=== PATIENT | male | born 1965 | race Caucasian/White ===

== ENCOUNTER 2022-07-07 06:01 | Inpatient (IN) | payer MEDICARE, MEDICAID ==
[~2022-07-07] VITALS: Ht 175.3 cm; Wt 76.7 kg
[2022-07-07] MEDS ORDERED: HALOPERIDOL LACTATE 5 MG/ML VIAL IM ONE (07:30)
[2022-07-07] MEDS ORDERED: DiphenhydrAMINE HCL 50 MG/ML VIAL IM ONE (07:30)
[2022-07-07] MEDS ORDERED: LORazepam 2 MG/ML VIAL IM ONE (07:30)
[2022-07-07 08:46] LABS: BASOPHILS % (AUTO) 0.6 % (0.0-2.0); EOSINOPHILS % (AUTO) 1.4 % (1.0-6.0); HEMATOCRIT 38.1 % (41-53); HEMOGLOBIN 12.8 g/dL (13.5-17.5); LYMPHOCYTES # (AUTO) 2.5 K/uL (1.0-4.8); LYMPHOCYTES % (AUTO) 33.2 % (22.0-44.0); MEAN CORPUSCULAR HEMOGLOBIN 28.9 pg (26.0-34.0); MEAN CORPUSCULAR HGB CONC 33.6 G/dL (31.0-37.0); MEAN CORPUSCULAR VOLUME 86 fL (80-100); MONOCYTES # (AUTO) 0.7 K/uL (0.1-1.0); MONOCYTES % (AUTO) 9.6 % (2.0-9.0); NEUTROPHILS # (AUTO) 4.2 K/uL (1.8-7.7); NEUTROPHILS % (AUTO) 55.2 % (40.0-70.0); PLATELET COUNT (AUTO) 174 K/uL (150-450); RED BLOOD CELL COUNT(AUTO) 4.43 MIL/uL (4.50-5.90); RED CELL DISTRIBUTION WIDTH 15.9 % (11.5-14.5)
[2022-07-07 08:54] LABS: ANION GAP 8 mmol/L (8-16); CALCIUM, TOTAL 8.8 mg/dL (8.8-10.5); CARBON DIOXIDE 26 mmol/L (22-29); CHLORIDE 108 mmol/L (98-107); CREATININE 0.99 mg/dL (0.60-1.30); GLOMERULAR FILTR. RATE CALC > 60 mL/min (>60); GLUCOSE,RANDOM 142 mg/dL (70-110); POTASSIUM 3.5 mmol/L (3.5-5.1); SODIUM SERUM 142 mmol/L (136-145); UREA NITROGEN, BLOOD 16 mg/dL (7-18)
[2022-07-07 09:00] LABS: ALANINE AMINOTRANSFERASE 47 U/L (12-78); ALBUMIN 3.6 g/dL (3.4-5.0); ALKALINE PHOSPHATASE 102 U/L (46-116); ASPARTATE AMINOTRANSFERASE 28 U/L (15-37); BILIRUBIN,TOTAL 0.2 mg/dL (0.1-1.0); TOTAL PROTEIN, SERUM 7.4 g/dL (6.4-8.2)
[2022-07-07] MEDS ORDERED: OLANZapine 5 MG RAPDIS TABLET PO PRN (09:30)
[2022-07-07] MEDS ORDERED: LORazepam 2 MG TABLET PO PRN (09:30)
[2022-07-07] MEDS ORDERED: ZOLPIDEM TARTRATE 10 MG TABLET PO PRN (09:30)
[2022-07-07] MEDS ORDERED: GuaiFENesin/D-METHORPHAN [SUGAR-FREE] 200-20MG/10 ML SYRUP UDCUP PO PRN (11:00)
[2022-07-07] MEDS ORDERED: MAG HYDROX/AL HYDROX/SIMETH ES 30 ML SUSPENSION UDCUP PO PRN (11:00)
[2022-07-07] MEDS ORDERED: TUBERCULIN, PURIFIED PROTEIN DERIVATIVE 5 TU/0.1 ML SYRINGE ID ONE (11:00)
[2022-07-07] MEDS ORDERED: MAGNESIUM HYDROXIDE SUSPENSION 30 ML UDCUP PO PRN (11:00)
[2022-07-07] MEDS ORDERED: ACETAMINOPHEN 325 MG TABLET PO PRN (11:00)
[2022-07-07] MEDS ORDERED: HydrOXYzine PAMOATE 50 MG CAPSULE PO PRN (11:00)
[2022-07-07] MEDS ORDERED: PROMETHAZINE HCL 25 MG TABLET PO PRN (11:00)
[2022-07-07] MEDS ORDERED: LOPERAMIDE HCL 2 MG CAPSULE PO PRN (11:00)
[2022-07-07 11:12] LABS: COVID AG,FIA SOURCE NASAL SWAB
[2022-07-07 11:26] LABS: APPEARANCE,URINE CLEAR (CLEAR); BILIRUBIN,URINE NEGATIVE (NEGATIVE); GLUCOSE, URINE (UA) NEGATIVE (NEGATIVE); KETONES,URINE NEGATIVE (NEGATIVE); LEUKOCYTE ESTERASE ,URINE NEGATIVE (NEGATIVE); NITRATE,URINE NEGATIVE (NEGATIVE); OCCULT BLOOD,URINE NEGATIVE (NEGATIVE); PH,URINE 5.5 (5.0-8.0); PROTEIN,URINE NEGATIVE (NEGATIVE); SPECIFIC GRAVITIY, URINE 1.006 (1.003-1.030); UROBILINOGEN,URINE <=1.0 mg/dL (<=1.0)
[2022-07-07 11:35] LABS: AMPHET/METH SCREEN,URINE NEGATIVE (NEGATIVE); BARBITURATE SCREEN, URINE NEGATIVE (NEGATIVE); BENZODIAZEPINES SCREEN,URINE NEGATIVE (NEGATIVE); CANNABINOID SCREEN,URINE NEGATIVE (NEGATIVE); COCAINE SCREEN,URINE NEGATIVE (NEGATIVE); METHADONE SCREEN, URINE NEGATIVE (NEGATIVE); OPIATE SCREEN,URINE NEGATIVE (NEGATIVE)
[2022-07-07 11:36] LABS: PHENCYCLIDINE SCREEN,URINE NEGATIVE (NEGATIVE)
[2022-07-07] MEDS ORDERED: CARVEDILOL 3.125 MG TABLET PO ONE (17:15)
[2022-07-07] MEDS ORDERED: CloNIDine HCL 0.1 MG TABLET PO PRN (17:15)
[2022-07-07] MEDS ORDERED: CYANOCOBALAMIN 1,000 MCG/ML VIAL IM ONE (19:15)
[2022-07-07] MEDS ORDERED: DIAZEPAM 10 MG TABLET PO PRN (19:15)
[2022-07-07] MEDS: GABAPENTIN 300 MG CAPSULE PO SCH (21:00)
[2022-07-07] MEDS: MELATONIN 5 MG TABLET PO SCH (21:00)
[2022-07-07] MEDS: DIVALPROEX SODIUM 500 MG ER TABLET PO SCH (21:00)
[2022-07-07] MEDS: OLANZapine 5 MG RAPDIS TABLET PO SCH (21:00)
[2022-07-07 23:20] VITALS: BP 131/90
[2022-07-07] MEDS: THIAMINE 100 MG TABLET PO SCH (23:58)
[2022-07-07 23:59] VITALS: BP 131/90
[2022-07-08] VITALS (10 sets, daily range): BP systolic 103–128; BP diastolic 60–85
[2022-07-08 00:16] LABS: GLUCOMETER DEV NAME(LOC) BV3N.; GLUCOSE,POINT OF CARE 126 MG/DL (70-110)
[2022-07-08] MEDS ORDERED: DIAZEPAM 10 MG TABLET PO PRN (07:00)
[2022-07-08] MEDS: MULTIVITAMINS WITH MINERALS, THERAPEUTIC TABLET PO SCH (08:16)
[2022-07-08] MEDS: FOLIC ACID 1 MG TABLET PO SCH (08:16)
[2022-07-08] MEDS: DIAZEPAM 10 MG TABLET PO SCH ×4 (08:17→20:11)
[2022-07-08] MEDS: OMEGA-3/DHA/EPA/FISH OIL 1,000 MG CAPSULE PO SCH (08:17)
[2022-07-08] MEDS: GABAPENTIN 300 MG CAPSULE PO SCH ×4 (08:17→20:11)
[2022-07-08] MEDS: THIAMINE 100 MG TABLET PO SCH ×2 (08:17→18:10)
[2022-07-08] MEDS: NALTREXONE HCL 50 MG TABLET PO SCH (08:17)
[2022-07-08] MEDS: MELATONIN 5 MG TABLET PO SCH (20:11)
[2022-07-08] MEDS: OLANZapine 5 MG RAPDIS TABLET PO SCH (20:11)
[2022-07-08] MEDS: DIVALPROEX SODIUM 500 MG ER TABLET PO SCH (20:11)
[2022-07-09 07:25] LABS: HEMOGLOBIN A1C 6.3 % (3.8-5.6)
[2022-07-09 07:31] LABS: CHOL/HDL RATIO 4.9 (4.2-7.3); FREE T4 (FREE THYROXINE) 0.83 ng/dL (0.76-1.46)
[2022-07-09 07:54] LABS: THYROID STIMULATING HORMONE 1.12 uIU/mL (0.36-3.74)
[2022-07-09 08:07] VITALS: BP 118/68
[2022-07-09] MEDS: FOLIC ACID 1 MG TABLET PO SCH (08:51)
[2022-07-09] MEDS: OMEGA-3/DHA/EPA/FISH OIL 1,000 MG CAPSULE PO SCH (08:51)
[2022-07-09] MEDS: DIAZEPAM 10 MG TABLET PO SCH ×4 (08:52→20:06)
[2022-07-09] MEDS: GABAPENTIN 300 MG CAPSULE PO SCH ×4 (08:52→20:06)
[2022-07-09] MEDS: NALTREXONE HCL 50 MG TABLET PO SCH (08:52)
[2022-07-09] MEDS: MULTIVITAMINS WITH MINERALS, THERAPEUTIC TABLET PO SCH (08:52)
[2022-07-09] MEDS: THIAMINE 100 MG TABLET PO SCH ×2 (08:52→17:33)
[2022-07-09 12:48] VITALS: BP 118/68
[2022-07-09] MEDS: DIVALPROEX SODIUM 500 MG ER TABLET PO SCH (20:06)
[2022-07-09] MEDS: MELATONIN 5 MG TABLET PO SCH (20:06)
[2022-07-09] MEDS: OLANZapine 10 MG RAPDIS TABLET PO SCH (20:07)
[2022-07-09 20:09] VITALS: BP 144/88
[2022-07-09 20:25] VITALS: BP 144/88
[2022-07-10] MEDS ORDERED: DIAZEPAM 5 MG TABLET PO PRN (07:00)
[2022-07-10] MEDS: THIAMINE 100 MG TABLET PO SCH ×2 (08:19→16:19)
[2022-07-10] MEDS: GABAPENTIN 300 MG CAPSULE PO SCH ×4 (08:19→21:00)
[2022-07-10] MEDS: MULTIVITAMINS WITH MINERALS, THERAPEUTIC TABLET PO SCH (08:19)
[2022-07-10] MEDS: FOLIC ACID 1 MG TABLET PO SCH (08:20)
[2022-07-10] MEDS: NALTREXONE HCL 50 MG TABLET PO SCH (08:20)
[2022-07-10] MEDS: OMEGA-3/DHA/EPA/FISH OIL 1,000 MG CAPSULE PO SCH (08:20)
[2022-07-10] MEDS: DIAZEPAM 5 MG TABLET PO SCH ×4 (08:21→21:30)
[2022-07-10 08:51] VITALS: BP 129/85
[2022-07-10 08:52] VITALS: BP 129/85
[2022-07-10] MEDS ORDERED: GLUCAGON,HUMAN RECOMBINANT 1 MG VIAL IM PRN (12:15)
[2022-07-10] MEDS ORDERED: INSULIN LISPRO 100 UNITS/ML SQ PRN (12:15)
[2022-07-10 16:56] LABS: GLUCOMETER DEV NAME(LOC) BV3N.; GLUCOSE,POINT OF CARE 266 MG/DL (70-110)
[2022-07-10 20:10] VITALS: BP 124/87
[2022-07-10] MEDS ORDERED: ATORVASTATIN CALCIUM 20 MG TABLET PO SCH (21:00)
[2022-07-10] MEDS: DIVALPROEX SODIUM 500 MG ER TABLET PO SCH (21:00)
[2022-07-10] MEDS: MELATONIN 5 MG TABLET PO SCH (21:00)
[2022-07-10] MEDS: OLANZapine 10 MG RAPDIS TABLET PO SCH (21:00)
[2022-07-11] MEDS ORDERED: DIAZEPAM 5 MG TABLET PO PRN (07:00)
== END 2022-07-11 09:27 | disposition short-term general hospital (02) | DRG 884 ==
LOC: EMS 06:03 → UNDOADMIN 16:28 → 3EC 16:28 → B3A 16:28 → 3EC 23:25 → B3A 23:25
PROVIDERS: ADMIT Psychiatry & Neurology Psychiatry; ATTEND Psychiatry & Neurology Psychiatry
DX: F09 Unspecified mental disorder due to known physiological condition (principal); F25.9 Schizoaffective disorder, unspecified; Z20.822 Contact with and (suspected) exposure to COVID-19; I10 Essential (primary) hypertension; R73.9 Hyperglycemia, unspecified; D64.9 Anemia, unspecified; Z86.73 Personal history of transient ischemic attack (TIA), and cerebral infarction without residual deficits
CPT/HCPCS: 80053; 80061; 80164; 80307; 81003; 82962; 83036; 84439; 84443; 85025; 86592; 99285; G0480; J1200; J1630; J2060; Q9967

== ENCOUNTER 2022-07-10 22:02 | Inpatient (IN) | payer MEDICARE, MEDICAID ==
[~2022-07-10] VITALS: Ht 177.8 cm; Wt 78.7 kg
[2022-07-10] MEDS ORDERED: 0.9% SODIUM CHLORIDE 10 ML SYRINGE IVP PRN (23:30)
[2022-07-10] MEDS ORDERED: SODIUM CHLORIDE 0.9% 1,000 ML IV ONE ×2 (23:30)
[2022-07-10 23:42] LABS: BASOPHILS % (AUTO) 0.7 % (0.0-2.0); EOSINOPHILS % (AUTO) 0.8 % (1.0-6.0); HEMATOCRIT 37.3 % (41-53); HEMOGLOBIN 12.6 g/dL (13.5-17.5); LYMPHOCYTES # (AUTO) 2.2 K/uL (1.0-4.8); LYMPHOCYTES % (AUTO) 13.9 % (22.0-44.0); MEAN CORPUSCULAR HEMOGLOBIN 28.9 pg (26.0-34.0); MEAN CORPUSCULAR HGB CONC 33.7 G/dL (31.0-37.0); MEAN CORPUSCULAR VOLUME 86 fL (80-100); MONOCYTES # (AUTO) 1.5 K/uL (0.1-1.0); MONOCYTES % (AUTO) 9.2 % (2.0-9.0); NEUTROPHILS % (AUTO) 75.4 % (40.0-70.0); PLATELET COUNT (AUTO) 188 K/uL (150-450); RED BLOOD CELL COUNT(AUTO) 4.34 MIL/uL (4.50-5.90); RED CELL DISTRIBUTION WIDTH 15.5 % (11.5-14.5)
[2022-07-10 23:56] LABS: INR 1.1 (0.9-1.1); PROTHROMBIN TIME 11.6 SEC (9.4-11.6)
[2022-07-11 00:02] LABS: ANION GAP 9 mmol/L (8-16); CALCIUM, TOTAL 9.3 mg/dL (8.8-10.5); CARBON DIOXIDE 27 mmol/L (22-29); CHLORIDE 103 mmol/L (98-107); CREATININE 1.11 mg/dL (0.60-1.30); GLUCOSE,RANDOM 155 mg/dL (70-110); POTASSIUM 3.7 mmol/L (3.5-5.1); SODIUM SERUM 139 mmol/L (136-145); UREA NITROGEN, BLOOD 16 mg/dL (7-18)
[2022-07-11 00:07] LABS: GLOMERULAR FILTR. RATE CALC > 60 mL/min (>60)
[2022-07-11 00:09] LABS: ALANINE AMINOTRANSFERASE 66 U/L (12-78); ALBUMIN 3.6 g/dL (3.4-5.0); ALKALINE PHOSPHATASE 115 U/L (46-116); ASPARTATE AMINOTRANSFERASE 83 U/L (15-37); BILIRUBIN,TOTAL 0.3 mg/dL (0.1-1.0); TOTAL PROTEIN, SERUM 7.6 g/dL (6.4-8.2)
[2022-07-11 00:10] LABS: LACTIC ACID 1.8 mmol/L (0.4-2.0)
[2022-07-11 01:33] LABS: COVID AG,FIA SOURCE NASOPHARYNGEAL
[2022-07-11 01:55] LABS: INFLUENZA TYPE A NEGATIVE FOR TYPE A (NEGATIVE); INFLUENZA TYPE B NEGATIVE FOR TYPE B (NEGATIVE)
[2022-07-11 03:21] LABS: APPEARANCE,URINE CLEAR (CLEAR); BILIRUBIN,URINE NEGATIVE (NEGATIVE); GLUCOSE, URINE (UA) 300-500 mg/dL (NEGATIVE); KETONES,URINE NEGATIVE (NEGATIVE); LEUKOCYTE ESTERASE ,URINE NEGATIVE (NEGATIVE); NITRATE,URINE NEGATIVE (NEGATIVE); OCCULT BLOOD,URINE NEGATIVE (NEGATIVE); PH,URINE 5.5 (5.0-8.0); PROTEIN,URINE NEGATIVE (NEGATIVE); SPECIFIC GRAVITIY, URINE 1.008 (1.003-1.030); UROBILINOGEN,URINE <=1.0 mg/dL (<=1.0)
[2022-07-11 03:37] LABS: BACTERIA,URINE Moderate /HPF (None Seen); RBC,URINE 0-2 /HPF (0-2); SQUAMOUS EPITHELIAL CELL,UR Few /LPF (None Seen)
[2022-07-11] MEDS ORDERED: SODIUM CHLORIDE 0.9% 1,000 ML IV ONE ×2 (04:30→08:00)
[2022-07-11] MEDS ORDERED: MAGNESIUM HYDROXIDE SUSPENSION 30 ML UDCUP PO PRN (05:30)
[2022-07-11] MEDS ORDERED: ACETAMINOPHEN 325 MG TABLET PO PRN (05:30)
[2022-07-11] MEDS ORDERED: ONDANSETRON HCL 4 MG/2 ML VIAL IVP PRN (05:30)
[2022-07-11] MEDS ORDERED: MORPHINE SULFATE 2 MG/ML SYRINGE IVP PRN (05:30)
[2022-07-11] MEDS ORDERED: CefTRIAXone 1 GM/DEXTROSE 50 ML IV ONE (06:00)
[2022-07-11] MEDS: LevETIRAcetam 500 MG in DEXTROSE 5%-WATER 100 ML IV SCH ×2 (08:26→21:24)
[2022-07-11] MEDS: DOCUSATE SODIUM 100 MG CAPSULE PO SCH ×2 (09:00→21:25)
[2022-07-11] MEDS: PANTOPRAZOLE SODIUM 40 MG/VIAL IVP SCH (10:09)
[2022-07-11] MEDS ORDERED: GADOTERATE MEGLUMINE 10 MMOL/20 ML VIAL IVP ONE (11:23)
[2022-07-11 21:22] VITALS: BP 177/93
[2022-07-11 21:46] VITALS: BP 163/97
[2022-07-11 23:53] VITALS: BP 158/99
[2022-07-12 04:10] VITALS: BP 157/79
[2022-07-12 07:48] VITALS: BP 148/84
[2022-07-12] MEDS: PANTOPRAZOLE SODIUM 40 MG/VIAL IVP SCH (09:17)
[2022-07-12] MEDS: LevETIRAcetam 500 MG in DEXTROSE 5%-WATER 100 ML IV SCH (09:17)
[2022-07-12] MEDS: DOCUSATE SODIUM 100 MG CAPSULE PO SCH ×2 (09:17→20:04)
[2022-07-12] MEDS: LevETIRAcetam 500 MG TABLET PO SCH ×2 (10:29→20:04)
[2022-07-12] MEDS: PANTOPRAZOLE SODIUM 40 MG DR TABLET PO SCH (10:29)
[2022-07-12] MEDS: AmLODIPine BESYLATE 5 MG TABLET PO SCH (10:30)
[2022-07-12 11:21] VITALS: BP 139/88
[2022-07-12 15:20] VITALS: BP 154/96
[2022-07-12 19:41] VITALS: BP 130/82
[2022-07-12] MEDS: OLANZapine 10 MG TABLET PO SCH (21:14)
[2022-07-13] VITALS (7 sets, daily range): BP systolic 122–138; BP diastolic 62–82
[2022-07-13] MEDS: DIAZEPAM 5 MG TABLET PO PRN ×3 (00:10→04:50)
[2022-07-13] MEDS ORDERED: LORazepam 2 MG/ML VIAL IM ONE (05:00)
[2022-07-13 06:11] LABS: BASOPHILS % (AUTO) 0.4 % (0.0-2.0); EOSINOPHILS % (AUTO) 4.2 % (1.0-6.0); HEMOGLOBIN 12.4 g/dL (13.5-17.5); LYMPHOCYTES # (AUTO) 1.6 K/uL (1.0-4.8); LYMPHOCYTES % (AUTO) 20.5 % (22.0-44.0); MEAN CORPUSCULAR HEMOGLOBIN 29.6 pg (26.0-34.0); MEAN CORPUSCULAR HGB CONC 34.5 G/dL (31.0-37.0); MEAN CORPUSCULAR VOLUME 86 fL (80-100); MONOCYTES # (AUTO) 1.2 K/uL (0.1-1.0); NEUTROPHILS # (AUTO) 4.5 K/uL (1.8-7.7); NEUTROPHILS % (AUTO) 58.9 % (40.0-70.0); PLATELET COUNT (AUTO) 168 K/uL (150-450); RED CELL DISTRIBUTION WIDTH 15.7 % (11.5-14.5)
[2022-07-13] MEDS: PANTOPRAZOLE SODIUM 40 MG DR TABLET PO SCH (10:46)
[2022-07-13] MEDS: DOCUSATE SODIUM 100 MG CAPSULE PO SCH ×2 (10:47→20:50)
[2022-07-13] MEDS: AmLODIPine BESYLATE 5 MG TABLET PO SCH (10:47)
[2022-07-13] MEDS: LevETIRAcetam 500 MG TABLET PO SCH ×2 (10:47→20:45)
[2022-07-13] MEDS: OLANZapine 10 MG TABLET PO SCH (20:45)
[2022-07-14] VITALS (12 sets, daily range): BP systolic 98–154; BP diastolic 60–94
[2022-07-14] MEDS: PANTOPRAZOLE SODIUM 40 MG DR TABLET PO SCH (08:25)
[2022-07-14] MEDS: LevETIRAcetam 500 MG TABLET PO SCH ×2 (08:25→20:02)
[2022-07-14] MEDS: DOCUSATE SODIUM 100 MG CAPSULE PO SCH ×2 (08:25→20:02)
[2022-07-14] MEDS: DIAZEPAM 5 MG TABLET PO PRN (08:26)
[2022-07-14] MEDS: AmLODIPine BESYLATE 5 MG TABLET PO SCH (08:27)
[2022-07-14] MEDS: OLANZapine 10 MG TABLET PO SCH (20:02)
[2022-07-14] MEDS ORDERED: ATORVASTATIN CALCIUM 20 MG TABLET PO SCH (21:00)
[2022-07-15 00:45] VITALS: BP 152/76
[2022-07-15 04:35] VITALS: BP 118/76
[2022-07-15] MEDS ORDERED: ASPIRIN 81 MG CHEWABLE TABLET PO SCH (08:00)
[2022-07-15 08:10] VITALS: BP 118/80
[2022-07-15] MEDS: DOCUSATE SODIUM 100 MG CAPSULE PO SCH (08:26)
[2022-07-15] MEDS: PANTOPRAZOLE SODIUM 40 MG DR TABLET PO SCH (08:26)
[2022-07-15] MEDS: AmLODIPine BESYLATE 5 MG TABLET PO SCH (08:26)
[2022-07-15] MEDS: LevETIRAcetam 500 MG TABLET PO SCH (08:27)
[2022-07-15 12:05] VITALS: BP 121/75
[2022-07-15 12:52] LABS: COVID AG,FIA SOURCE NASOPHARYNGEAL
== END 2022-07-15 16:00 | DRG 65 ==
LOC: EMS 22:33 → AHU 07-11 10:35 → 5S 07-11 18:13
PROVIDERS: ADMIT Internal Medicine; ATTEND Internal Medicine
DX: I62.9 Nontraumatic intracranial hemorrhage, unspecified (principal); F01.53 Vascular dementia, unspecified severity, with mood disturbance; R65.10 Systemic inflammatory response syndrome (SIRS) of non-infectious origin without acute organ dysfunction; I69.354 Hemiplegia and hemiparesis following cerebral infarction affecting left non-dominant side; D63.8 Anemia in other chronic diseases classified elsewhere; R73.9 Hyperglycemia, unspecified; G40.909 Epilepsy, unspecified, not intractable, without status epilepticus; I10 Essential (primary) hypertension; Z82.49 Family history of ischemic heart disease and other diseases of the circulatory system; Z83.3 Family history of diabetes mellitus; Z79.899 Other long term (current) drug therapy; Z79.82 Long term (current) use of aspirin; F29 Unspecified psychosis not due to a substance or known physiological condition
CPT/HCPCS: 70450; 70544; 70553; 71045; 80053; 81001; 83605; 84145; 85025; 85610; 85730; 87040; 87081; 87086; 87186; 87804; 92526; 93005; 97116; 97161; 97166; 97530; 99285; C9113; G0378; J0696; J0712; J2060; J7060; 36415-L1; 36415-TC

== ENCOUNTER 2022-07-15 11:09 | Inpatient (IN) | payer MEDICARE, MEDICAID ==
[~2022-07-15] VITALS: Ht 177.8 cm; Wt 79.0 kg
[2022-07-15] MEDS ORDERED: LOPERAMIDE HCL 2 MG CAPSULE PO PRN (13:00)
[2022-07-15] MEDS ORDERED: PROMETHAZINE HCL 25 MG TABLET PO PRN (13:00)
[2022-07-15] MEDS ORDERED: MAG HYDROX/AL HYDROX/SIMETH ES 30 ML SUSPENSION UDCUP PO PRN (13:00)
[2022-07-15] MEDS ORDERED: HydrOXYzine PAMOATE 50 MG CAPSULE PO PRN (13:00)
[2022-07-15 16:17] VITALS: BP 110/67
[2022-07-15] MEDS: THIAMINE 100 MG TABLET PO SCH (17:09)
[2022-07-15] MEDS: LevETIRAcetam 500 MG TABLET PO SCH (17:09)
[2022-07-15] MEDS: OLANZapine 10 MG RAPDIS TABLET PO SCH (20:45)
[2022-07-15] MEDS: DIVALPROEX SODIUM 500 MG ER TABLET PO SCH (20:46)
[2022-07-15] MEDS: MELATONIN 5 MG TABLET PO SCH (20:46)
[2022-07-16] MEDS: FLUoxetine HCL 20 MG CAPSULE PO SCH (08:25)
[2022-07-16] MEDS: FOLIC ACID 1 MG TABLET PO SCH (08:25)
[2022-07-16] MEDS: MULTIVITAMINS WITH MINERALS, THERAPEUTIC TABLET PO SCH (08:25)
[2022-07-16] MEDS: NALTREXONE HCL 50 MG TABLET PO SCH (08:25)
[2022-07-16] MEDS: PANTOPRAZOLE SODIUM 40 MG DR TABLET PO SCH (08:25)
[2022-07-16] MEDS: LevETIRAcetam 500 MG TABLET PO SCH ×2 (08:25→16:51)
[2022-07-16] MEDS: OMEGA-3/DHA/EPA/FISH OIL 1,000 MG CAPSULE PO SCH (08:25)
[2022-07-16] MEDS: THIAMINE 100 MG TABLET PO SCH ×2 (08:25→16:51)
[2022-07-16 08:29] VITALS: BP 100/70
[2022-07-16 16:27] VITALS: BP 140/87
[2022-07-16] MEDS: NICOTINE 21 MG/24 HOUR PATCH TD PRN (18:20)
[2022-07-16] MEDS: MELATONIN 5 MG TABLET PO SCH (20:36)
[2022-07-16] MEDS: OLANZapine 10 MG RAPDIS TABLET PO SCH (20:36)
[2022-07-16] MEDS: DIVALPROEX SODIUM 500 MG ER TABLET PO SCH (20:36)
[2022-07-17 08:00] VITALS: BP 143/87
[2022-07-17] MEDS: LevETIRAcetam 500 MG TABLET PO SCH ×2 (08:52→17:04)
[2022-07-17] MEDS: OMEGA-3/DHA/EPA/FISH OIL 1,000 MG CAPSULE PO SCH (08:52)
[2022-07-17] MEDS: NALTREXONE HCL 50 MG TABLET PO SCH (08:52)
[2022-07-17] MEDS: MULTIVITAMINS WITH MINERALS, THERAPEUTIC TABLET PO SCH (08:52)
[2022-07-17] MEDS: FLUoxetine HCL 20 MG CAPSULE PO SCH (08:53)
[2022-07-17] MEDS: PANTOPRAZOLE SODIUM 40 MG DR TABLET PO SCH (08:53)
[2022-07-17] MEDS: FOLIC ACID 1 MG TABLET PO SCH (08:53)
[2022-07-17] MEDS: THIAMINE 100 MG TABLET PO SCH ×2 (08:53→17:04)
[2022-07-17 16:00] VITALS: BP 109/71
[2022-07-17] MEDS: NICOTINE 21 MG/24 HOUR PATCH TD PRN (18:06)
[2022-07-17] MEDS: DIVALPROEX SODIUM 500 MG ER TABLET PO SCH (20:44)
[2022-07-17] MEDS: MELATONIN 5 MG TABLET PO SCH (20:44)
[2022-07-17] MEDS: OLANZapine 10 MG RAPDIS TABLET PO SCH (20:44)
[2022-07-18 08:00] VITALS: BP 153/84
[2022-07-18] MEDS: MULTIVITAMINS WITH MINERALS, THERAPEUTIC TABLET PO SCH (08:34)
[2022-07-18] MEDS: PANTOPRAZOLE SODIUM 40 MG DR TABLET PO SCH (08:34)
[2022-07-18] MEDS: FOLIC ACID 1 MG TABLET PO SCH (08:34)
[2022-07-18] MEDS: NALTREXONE HCL 50 MG TABLET PO SCH (08:34)
[2022-07-18] MEDS: LevETIRAcetam 500 MG TABLET PO SCH ×2 (08:34→15:59)
[2022-07-18] MEDS: OMEGA-3/DHA/EPA/FISH OIL 1,000 MG CAPSULE PO SCH (08:34)
[2022-07-18] MEDS: FLUoxetine HCL 20 MG CAPSULE PO SCH (08:34)
[2022-07-18] MEDS: THIAMINE 100 MG TABLET PO SCH ×2 (08:34→15:59)
[2022-07-18 16:02] VITALS: BP 141/79
[2022-07-18] MEDS: DIVALPROEX SODIUM 500 MG ER TABLET PO SCH (20:29)
[2022-07-18] MEDS: OLANZapine 10 MG RAPDIS TABLET PO SCH (20:29)
[2022-07-18] MEDS: MELATONIN 5 MG TABLET PO SCH (20:30)
[2022-07-19 08:35] VITALS: BP 101/57
[2022-07-19] MEDS: MULTIVITAMINS WITH MINERALS, THERAPEUTIC TABLET PO SCH (12:35)
[2022-07-19] MEDS: FLUoxetine HCL 20 MG CAPSULE PO SCH (12:35)
[2022-07-19] MEDS: PANTOPRAZOLE SODIUM 40 MG DR TABLET PO SCH (12:35)
[2022-07-19] MEDS: THIAMINE 100 MG TABLET PO SCH ×2 (12:35→16:14)
[2022-07-19] MEDS: LevETIRAcetam 500 MG TABLET PO SCH ×2 (12:35→16:14)
[2022-07-19] MEDS: NALTREXONE HCL 50 MG TABLET PO SCH (12:35)
[2022-07-19] MEDS: FOLIC ACID 1 MG TABLET PO SCH (12:35)
[2022-07-19] MEDS: OMEGA-3/DHA/EPA/FISH OIL 1,000 MG CAPSULE PO SCH (12:36)
[2022-07-19 17:05] VITALS: BP 134/83
[2022-07-19] MEDS: MELATONIN 5 MG TABLET PO SCH (21:00)
[2022-07-19] MEDS: OLANZapine 10 MG RAPDIS TABLET PO SCH (21:01)
[2022-07-19] MEDS: DIVALPROEX SODIUM 500 MG ER TABLET PO SCH (21:01)
[2022-07-20] MEDS: PANTOPRAZOLE SODIUM 40 MG DR TABLET PO SCH (08:26)
[2022-07-20] MEDS: FOLIC ACID 1 MG TABLET PO SCH (08:26)
[2022-07-20] MEDS: THIAMINE 100 MG TABLET PO SCH ×2 (08:26→18:04)
[2022-07-20] MEDS: FLUoxetine HCL 20 MG CAPSULE PO SCH (08:26)
[2022-07-20] MEDS: MULTIVITAMINS WITH MINERALS, THERAPEUTIC TABLET PO SCH (08:26)
[2022-07-20] MEDS: OMEGA-3/DHA/EPA/FISH OIL 1,000 MG CAPSULE PO SCH (08:26)
[2022-07-20] MEDS: NALTREXONE HCL 50 MG TABLET PO SCH (08:27)
[2022-07-20] MEDS: LevETIRAcetam 500 MG TABLET PO SCH ×2 (08:27→18:04)
[2022-07-20 08:29] VITALS: BP 149/88
[2022-07-20] MEDS: MAGNESIUM HYDROXIDE SUSPENSION 30 ML UDCUP PO PRN (18:39)
[2022-07-20 18:50] VITALS: BP 150/91
[2022-07-20] MEDS: MELATONIN 5 MG TABLET PO SCH (20:22)
[2022-07-20] MEDS: DIVALPROEX SODIUM 500 MG ER TABLET PO SCH (20:23)
[2022-07-20] MEDS: OLANZapine 10 MG RAPDIS TABLET PO SCH (20:23)
[2022-07-21 08:23] VITALS: BP 131/87
[2022-07-21] MEDS: OMEGA-3/DHA/EPA/FISH OIL 1,000 MG CAPSULE PO SCH (08:57)
[2022-07-21] MEDS: NALTREXONE HCL 50 MG TABLET PO SCH (08:58)
[2022-07-21] MEDS: MULTIVITAMINS WITH MINERALS, THERAPEUTIC TABLET PO SCH (08:58)
[2022-07-21] MEDS: FLUoxetine HCL 20 MG CAPSULE PO SCH (08:58)
[2022-07-21] MEDS: THIAMINE 100 MG TABLET PO SCH ×2 (08:58→16:17)
[2022-07-21] MEDS: PANTOPRAZOLE SODIUM 40 MG DR TABLET PO SCH (08:58)
[2022-07-21] MEDS: FOLIC ACID 1 MG TABLET PO SCH (08:58)
[2022-07-21] MEDS: LevETIRAcetam 500 MG TABLET PO SCH ×2 (08:58→16:17)
[2022-07-21] MEDS: MAGNESIUM HYDROXIDE SUSPENSION 30 ML UDCUP PO PRN (11:48)
[2022-07-21 16:10] VITALS: BP 124/85
[2022-07-21] MEDS: OLANZapine 5 MG RAPDIS TABLET PO PRN (16:17)
[2022-07-21] MEDS: LORazepam 1 MG TABLET PO PRN ×2 (16:17→20:26)
[2022-07-21] MEDS: ZOLPIDEM TARTRATE 10 MG TABLET PO PRN (20:26)
[2022-07-21] MEDS: DIVALPROEX SODIUM 500 MG ER TABLET PO SCH (20:26)
[2022-07-21] MEDS: MELATONIN 5 MG TABLET PO SCH (20:26)
[2022-07-21] MEDS: OLANZapine 10 MG RAPDIS TABLET PO SCH (20:26)
[2022-07-22 06:29] LABS: COVID AG,FIA SOURCE NASAL SWAB
[2022-07-22 08:23] VITALS: BP 148/88
[2022-07-22] MEDS: OMEGA-3/DHA/EPA/FISH OIL 1,000 MG CAPSULE PO SCH (08:29)
[2022-07-22] MEDS: FLUoxetine HCL 20 MG CAPSULE PO SCH (08:30)
[2022-07-22] MEDS: FOLIC ACID 1 MG TABLET PO SCH (08:30)
[2022-07-22] MEDS: PANTOPRAZOLE SODIUM 40 MG DR TABLET PO SCH (08:30)
[2022-07-22] MEDS: NALTREXONE HCL 50 MG TABLET PO SCH (08:30)
[2022-07-22] MEDS: THIAMINE 100 MG TABLET PO SCH ×2 (08:30→16:50)
[2022-07-22] MEDS: LevETIRAcetam 500 MG TABLET PO SCH ×2 (08:30→16:50)
[2022-07-22] MEDS: MULTIVITAMINS WITH MINERALS, THERAPEUTIC TABLET PO SCH (08:32)
[2022-07-22 12:08] LABS: APPEARANCE,URINE CLEAR (CLEAR); BILIRUBIN,URINE NEGATIVE (NEGATIVE); GLUCOSE, URINE (UA) NEGATIVE (NEGATIVE); KETONES,URINE NEGATIVE (NEGATIVE); LEUKOCYTE ESTERASE ,URINE NEGATIVE (NEGATIVE); NITRATE,URINE NEGATIVE (NEGATIVE); OCCULT BLOOD,URINE NEGATIVE (NEGATIVE); PH,URINE 6.5 (5.0-8.0); PROTEIN,URINE NEGATIVE (NEGATIVE); SPECIFIC GRAVITIY, URINE 1.009 (1.003-1.030); UROBILINOGEN,URINE <=1.0 mg/dL (<=1.0)
[2022-07-22 13:01] LABS: BACTERIA,URINE None Seen /HPF (None Seen); RBC,URINE None Seen /HPF (0-2); SQUAMOUS EPITHELIAL CELL,UR None Seen /LPF (None Seen); WBC,URINE None Seen /HPF (0-5)
[2022-07-22] MEDS: LORazepam 1 MG TABLET PO PRN (14:51)
[2022-07-22] MEDS: OLANZapine 5 MG RAPDIS TABLET PO PRN (14:52)
[2022-07-22 16:49] VITALS: BP 128/80
[2022-07-22] MEDS: HYDROCORTISONE 1% 30 GM CREAM TP PRN (18:36)
[2022-07-22] MEDS: DIVALPROEX SODIUM 500 MG ER TABLET PO SCH (20:51)
[2022-07-22] MEDS: OLANZapine 10 MG RAPDIS TABLET PO SCH (20:52)
[2022-07-22] MEDS: MELATONIN 5 MG TABLET PO SCH (20:52)
[2022-07-23 06:37] LABS: BASOPHILS % (AUTO) 0.1 % (0.0-2.0); EOSINOPHILS % (AUTO) 2.4 % (1.0-6.0); HEMOGLOBIN 12.3 g/dL (13.5-17.5); LYMPHOCYTES # (AUTO) 1.1 K/uL (1.0-4.8); LYMPHOCYTES % (AUTO) 11.1 % (22.0-44.0); MEAN CORPUSCULAR HGB CONC 34.1 G/dL (31.0-37.0); MEAN CORPUSCULAR VOLUME 85 fL (80-100); MONOCYTES # (AUTO) 1.5 K/uL (0.1-1.0); MONOCYTES % (AUTO) 14.1 % (2.0-9.0); NEUTROPHILS # (AUTO) 7.5 K/uL (1.8-7.7); NEUTROPHILS % (AUTO) 72.3 % (40.0-70.0); PLATELET COUNT (AUTO) 208 K/uL (150-450); RED BLOOD CELL COUNT(AUTO) 4.23 MIL/uL (4.50-5.90); RED CELL DISTRIBUTION WIDTH 15.2 % (11.5-14.5)
[2022-07-23 07:00] LABS: ALANINE AMINOTRANSFERASE 20 U/L (12-78); ALKALINE PHOSPHATASE 94 U/L (46-116); ANION GAP 6 mmol/L (8-16); ASPARTATE AMINOTRANSFERASE 30 U/L (15-37); BILIRUBIN,TOTAL 0.3 mg/dL (0.1-1.0); CALCIUM, TOTAL 8.5 mg/dL (8.8-10.5); CARBON DIOXIDE 30 mmol/L (22-29); CHLORIDE 102 mmol/L (98-107); CREATININE 0.95 mg/dL (0.60-1.30); GLUCOSE,RANDOM 121 mg/dL (70-110); POTASSIUM 3.7 mmol/L (3.5-5.1); SODIUM SERUM 138 mmol/L (136-145); TOTAL PROTEIN, SERUM 7.2 g/dL (6.4-8.2); UREA NITROGEN, BLOOD 10 mg/dL (7-18)
[2022-07-23 07:02] LABS: GLOMERULAR FILTR. RATE CALC > 60 mL/min (>60)
[2022-07-23 07:33] LABS: HEMOGLOBIN A1C 6.5 % (3.8-5.6)
[2022-07-23 08:00] VITALS: BP 120/69
[2022-07-23] MEDS ORDERED: GLUCAGON,HUMAN RECOMBINANT 1 MG VIAL IM PRN (08:00)
[2022-07-23] MEDS: OMEGA-3/DHA/EPA/FISH OIL 1,000 MG CAPSULE PO SCH (08:34)
[2022-07-23] MEDS: FLUoxetine HCL 20 MG CAPSULE PO SCH (08:34)
[2022-07-23] MEDS: FOLIC ACID 1 MG TABLET PO SCH (08:34)
[2022-07-23] MEDS: MULTIVITAMINS WITH MINERALS, THERAPEUTIC TABLET PO SCH (08:34)
[2022-07-23] MEDS: PANTOPRAZOLE SODIUM 40 MG DR TABLET PO SCH (08:34)
[2022-07-23] MEDS: THIAMINE 100 MG TABLET PO SCH ×2 (08:34→16:50)
[2022-07-23] MEDS: LevETIRAcetam 500 MG TABLET PO SCH ×2 (08:34→16:50)
[2022-07-23] MEDS: NALTREXONE HCL 50 MG TABLET PO SCH (08:35)
[2022-07-23 08:41] LABS: CHOL/HDL RATIO 7.1 (4.2-7.3); CHOLESTEROL 170 mg/dL (131-200); CREATINE KINASE, TOTAL ONLY 379 U/L (39-308); HDL CHOLESTEROL 24 mg/dL (40-60); LDL CHOL (CALC.) 121 mg/dL (0-130); THYROID STIMULATING HORMONE 3.35 uIU/mL (0.36-3.74); TRIGLYCERIDES 123 mg/dL (15-150)
[2022-07-23] MEDS: HYDROCORTISONE 1% 30 GM CREAM TP PRN (09:12)
[2022-07-23 17:53] LABS: GLUCOMETER DEV NAME(LOC) 3E.C; GLUCOSE,POINT OF CARE 98 MG/DL (70-110)
[2022-07-23 17:53] LABS: GLUCOMETER DEV NAME(LOC) 3E.C; GLUCOSE,POINT OF CARE 42 MG/DL (70-110)
[2022-07-23 18:22] VITALS: BP 146/69
[2022-07-23 18:28] LABS: GLUCOMETER DEV NAME(LOC) 3E.C; GLUCOSE,POINT OF CARE 117 MG/DL (70-110)
[2022-07-23] MEDS: DIVALPROEX SODIUM 500 MG ER TABLET PO SCH (20:15)
[2022-07-23] MEDS: MELATONIN 5 MG TABLET PO SCH (20:15)
[2022-07-23] MEDS: OLANZapine 10 MG RAPDIS TABLET PO SCH (20:16)
[2022-07-24 06:07] LABS: GLUCOMETER DEV NAME(LOC) 3E.C; GLUCOSE,POINT OF CARE 134 MG/DL (70-110)
[2022-07-24] MEDS: THIAMINE 100 MG TABLET PO SCH ×2 (08:01→16:05)
[2022-07-24] MEDS: FLUoxetine HCL 20 MG CAPSULE PO SCH (08:01)
[2022-07-24] MEDS: OMEGA-3/DHA/EPA/FISH OIL 1,000 MG CAPSULE PO SCH (08:01)
[2022-07-24] MEDS: MULTIVITAMINS WITH MINERALS, THERAPEUTIC TABLET PO SCH (08:02)
[2022-07-24] MEDS: FOLIC ACID 1 MG TABLET PO SCH (08:02)
[2022-07-24] MEDS: NALTREXONE HCL 50 MG TABLET PO SCH (08:02)
[2022-07-24] MEDS: PANTOPRAZOLE SODIUM 40 MG DR TABLET PO SCH (08:02)
[2022-07-24] MEDS: LevETIRAcetam 500 MG TABLET PO SCH ×2 (08:02→16:04)
[2022-07-24 08:30] VITALS: BP 142/88
[2022-07-24] MEDS: INSULIN LISPRO 100 UNITS/ML SQ PRN ×2 (17:32→17:36)
[2022-07-24 17:47] LABS: GLUCOMETER DEV NAME(LOC) 3EX.2; GLUCOSE,POINT OF CARE 224 MG/DL (70-110)
[2022-07-24] MEDS: ACETAMINOPHEN 325 MG TABLET PO PRN (18:54)
[2022-07-24 19:37] LABS: COVID AG,FIA SOURCE NASAL SWAB
[2022-07-24] MEDS: DIVALPROEX SODIUM 500 MG ER TABLET PO SCH (22:09)
[2022-07-24] MEDS: OLANZapine 10 MG RAPDIS TABLET PO SCH (22:09)
[2022-07-24] MEDS: MELATONIN 5 MG TABLET PO SCH (22:09)
[2022-07-25 05:53] LABS: GLUCOMETER DEV NAME(LOC) 3EX.2; GLUCOSE,POINT OF CARE 181 MG/DL (70-110)
[2022-07-25] MEDS: INSULIN LISPRO 100 UNITS/ML SQ PRN (06:53)
[2022-07-25 06:55] VITALS: BP 117/76
[2022-07-25 09:26] VITALS: BP 152/83
[2022-07-25] MEDS: FLUoxetine HCL 20 MG CAPSULE PO SCH (09:38)
[2022-07-25] MEDS: FOLIC ACID 1 MG TABLET PO SCH (09:38)
[2022-07-25] MEDS: OMEGA-3/DHA/EPA/FISH OIL 1,000 MG CAPSULE PO SCH (09:38)
[2022-07-25] MEDS: LevETIRAcetam 500 MG TABLET PO SCH ×2 (09:38→16:59)
[2022-07-25] MEDS: THIAMINE 100 MG TABLET PO SCH (09:38)
[2022-07-25] MEDS: MULTIVITAMINS WITH MINERALS, THERAPEUTIC TABLET PO SCH (09:38)
[2022-07-25] MEDS: PANTOPRAZOLE SODIUM 40 MG DR TABLET PO SCH (09:38)
[2022-07-25] MEDS: NALTREXONE HCL 50 MG TABLET PO SCH (09:39)
[2022-07-25 16:01] LABS: GLUCOMETER DEV NAME(LOC) 3EX.2; GLUCOSE,POINT OF CARE 140 MG/DL (70-110)
[2022-07-25 17:09] VITALS: BP 122/78
[2022-07-25] MEDS: DIVALPROEX SODIUM 500 MG ER TABLET PO SCH (20:30)
[2022-07-25] MEDS: OLANZapine 10 MG RAPDIS TABLET PO SCH (20:31)
[2022-07-25] MEDS: MELATONIN 5 MG TABLET PO SCH (20:31)
[2022-07-25 23:18] VITALS: BP 117/65
[2022-07-25] MEDS: ZOLPIDEM TARTRATE 10 MG TABLET PO PRN (23:20)
[2022-07-25] MEDS: LORazepam 1 MG TABLET PO PRN (23:20)
[2022-07-26 07:06] LABS: GLUCOMETER DEV NAME(LOC) 3EX.2; GLUCOSE,POINT OF CARE 102 MG/DL (70-110)
[2022-07-26 08:34] VITALS: BP 126/83
[2022-07-26] MEDS: OMEGA-3/DHA/EPA/FISH OIL 1,000 MG CAPSULE PO SCH (12:03)
[2022-07-26] MEDS: NALTREXONE HCL 50 MG TABLET PO SCH (12:03)
[2022-07-26] MEDS: MULTIVITAMINS WITH MINERALS, THERAPEUTIC TABLET PO SCH (12:03)
[2022-07-26] MEDS: FLUoxetine HCL 20 MG CAPSULE PO SCH (12:03)
[2022-07-26] MEDS: PANTOPRAZOLE SODIUM 40 MG DR TABLET PO SCH (12:04)
[2022-07-26] MEDS: LevETIRAcetam 500 MG TABLET PO SCH ×2 (12:04→18:11)
[2022-07-26] MEDS: OLANZapine 5 MG RAPDIS TABLET PO PRN (14:49)
[2022-07-26] MEDS: LORazepam 1 MG TABLET PO PRN (14:49)
[2022-07-26 16:00] VITALS: BP 150/88
[2022-07-26 17:26] LABS: GLUCOMETER DEV NAME(LOC) 3EX.2; GLUCOSE,POINT OF CARE 217 MG/DL (70-110)
[2022-07-26] MEDS: INSULIN LISPRO 100 UNITS/ML SQ PRN (18:17)
[2022-07-26 19:30] VITALS: BP 137/84
[2022-07-26] MEDS: OLANZapine 10 MG RAPDIS TABLET PO SCH (21:30)
[2022-07-26] MEDS: DIVALPROEX SODIUM 500 MG ER TABLET PO SCH (21:31)
[2022-07-26] MEDS: MELATONIN 5 MG TABLET PO SCH (21:37)
[2022-07-27 06:06] LABS: GLUCOMETER DEV NAME(LOC) 3EX.2; GLUCOSE,POINT OF CARE 97 MG/DL (70-110)
[2022-07-27] MEDS: INSULIN LISPRO 100 UNITS/ML SQ PRN (06:38)
[2022-07-27 08:19] VITALS: BP 92/61
[2022-07-27] MEDS: OMEGA-3/DHA/EPA/FISH OIL 1,000 MG CAPSULE PO SCH (09:03)
[2022-07-27] MEDS: NALTREXONE HCL 50 MG TABLET PO SCH (09:03)
[2022-07-27] MEDS: FLUoxetine HCL 20 MG CAPSULE PO SCH (09:03)
[2022-07-27] MEDS: MULTIVITAMINS WITH MINERALS, THERAPEUTIC TABLET PO SCH (09:03)
[2022-07-27] MEDS: PANTOPRAZOLE SODIUM 40 MG DR TABLET PO SCH (09:03)
[2022-07-27] MEDS: LevETIRAcetam 500 MG TABLET PO SCH ×2 (09:03→16:37)
[2022-07-27 11:31] LABS: GLUCOMETER DEV NAME(LOC) 3EX.2; GLUCOSE,POINT OF CARE 177 MG/DL (70-110)
[2022-07-27 16:06] LABS: GLUCOMETER DEV NAME(LOC) 3EX.2; GLUCOSE,POINT OF CARE 135 MG/DL (70-110)
[2022-07-27] MEDS: DIVALPROEX SODIUM 500 MG ER TABLET PO SCH (21:13)
[2022-07-27] MEDS: MELATONIN 5 MG TABLET PO SCH (21:13)
[2022-07-27] MEDS: OLANZapine 10 MG RAPDIS TABLET PO SCH (21:13)
[2022-07-28] MEDS: INSULIN LISPRO 100 UNITS/ML SQ PRN ×2 (07:04→18:46)
[2022-07-28 07:12] LABS: GLUCOMETER DEV NAME(LOC) 3EX.2; GLUCOSE,POINT OF CARE 171 MG/DL (70-110)
[2022-07-28] MEDS: NALTREXONE HCL 50 MG TABLET PO SCH (08:19)
[2022-07-28] MEDS: FLUoxetine HCL 20 MG CAPSULE PO SCH (08:19)
[2022-07-28] MEDS: LevETIRAcetam 500 MG TABLET PO SCH ×2 (08:19→16:52)
[2022-07-28] MEDS: PANTOPRAZOLE SODIUM 40 MG DR TABLET PO SCH (08:19)
[2022-07-28] MEDS: MULTIVITAMINS WITH MINERALS, THERAPEUTIC TABLET PO SCH (08:19)
[2022-07-28] MEDS: OMEGA-3/DHA/EPA/FISH OIL 1,000 MG CAPSULE PO SCH (08:19)
[2022-07-28 16:25] VITALS: BP 100/65
[2022-07-28 16:41] LABS: GLUCOMETER DEV NAME(LOC) 3EX.2; GLUCOSE,POINT OF CARE 169 MG/DL (70-110)
[2022-07-28] MEDS: DIVALPROEX SODIUM 500 MG ER TABLET PO SCH (20:40)
[2022-07-28] MEDS: MELATONIN 5 MG TABLET PO SCH (20:40)
[2022-07-28] MEDS: OLANZapine 10 MG RAPDIS TABLET PO SCH (20:41)
[2022-07-28] MEDS: GuaiFENesin/D-METHORPHAN [SUGAR-FREE] 200-20MG/10 ML SYRUP UDCUP PO PRN (23:03)
[2022-07-29 00:35] VITALS: BP 117/62
[2022-07-29] MEDS: ACETAMINOPHEN 325 MG TABLET PO PRN (00:38)
[2022-07-29 01:35] VITALS: BP 121/70
[2022-07-29] MEDS: ZOLPIDEM TARTRATE 10 MG TABLET PO PRN ×2 (02:09→23:28)
[2022-07-29 06:30] VITALS: BP 125/68
[2022-07-29 07:45] LABS: COVID AG,FIA SOURCE NASAL SWAB
[2022-07-29 08:00] VITALS: BP 125/70
[2022-07-29] MEDS: FLUoxetine HCL 20 MG CAPSULE PO SCH (09:52)
[2022-07-29] MEDS: PANTOPRAZOLE SODIUM 40 MG DR TABLET PO SCH (09:52)
[2022-07-29] MEDS: NALTREXONE HCL 50 MG TABLET PO SCH (09:52)
[2022-07-29] MEDS: MULTIVITAMINS WITH MINERALS, THERAPEUTIC TABLET PO SCH (09:52)
[2022-07-29] MEDS: LevETIRAcetam 500 MG TABLET PO SCH ×2 (09:52→17:01)
[2022-07-29] MEDS: OMEGA-3/DHA/EPA/FISH OIL 1,000 MG CAPSULE PO SCH (09:53)
[2022-07-29 16:14] VITALS: BP 117/73
[2022-07-29 17:27] LABS: GLUCOMETER DEV NAME(LOC) 3EX.2; GLUCOSE,POINT OF CARE 158 MG/DL (70-110)
[2022-07-29] MEDS: INSULIN LISPRO 100 UNITS/ML SQ PRN (18:16)
[2022-07-29] MEDS ORDERED: BENZOCAINE/MENTHOL LOZENGE PO PRN (18:45)
[2022-07-29] MEDS: MELATONIN 5 MG TABLET PO SCH (20:51)
[2022-07-29] MEDS: DIVALPROEX SODIUM 500 MG ER TABLET PO SCH (20:51)
[2022-07-29] MEDS: OLANZapine 10 MG RAPDIS TABLET PO SCH (20:52)
[2022-07-30] MEDS: OLANZapine 5 MG RAPDIS TABLET PO PRN (00:26)
[2022-07-30 06:11] LABS: GLUCOMETER DEV NAME(LOC) 3EX.2; GLUCOSE,POINT OF CARE 129 MG/DL (70-110)
[2022-07-30] MEDS: INSULIN LISPRO 100 UNITS/ML SQ PRN (06:45)
[2022-07-30] MEDS: PANTOPRAZOLE SODIUM 40 MG DR TABLET PO SCH (09:14)
[2022-07-30] MEDS: MULTIVITAMINS WITH MINERALS, THERAPEUTIC TABLET PO SCH (09:14)
[2022-07-30] MEDS: FLUoxetine HCL 20 MG CAPSULE PO SCH (09:14)
[2022-07-30] MEDS: NALTREXONE HCL 50 MG TABLET PO SCH (09:14)
[2022-07-30] MEDS: OMEGA-3/DHA/EPA/FISH OIL 1,000 MG CAPSULE PO SCH (09:14)
[2022-07-30] MEDS: LevETIRAcetam 500 MG TABLET PO SCH ×3 (09:14→17:00)
[2022-07-30] MEDS: AMOXICILLIN TRIHYDRATE 500 MG CAPSULE PO SCH ×4 (09:14→17:00)
[2022-07-30 14:31] LABS: GLUCOMETER DEV NAME(LOC) 3EX.2; GLUCOSE,POINT OF CARE 161 MG/DL (70-110)
[2022-07-30 17:25] VITALS: BP 99/57
[2022-07-30 17:31] LABS: GLUCOMETER DEV NAME(LOC) 3EX.2; GLUCOSE,POINT OF CARE 171 MG/DL (70-110)
[2022-07-30] MEDS: OLANZapine 10 MG RAPDIS TABLET PO SCH (21:00)
[2022-07-30] MEDS: DIVALPROEX SODIUM 500 MG ER TABLET PO SCH (21:00)
[2022-07-30] MEDS: MELATONIN 5 MG TABLET PO SCH (21:00)
[2022-07-30 22:42] VITALS: BP 130/70
[2022-07-31 01:41] LABS: GLUCOMETER DEV NAME(LOC) 3EX.2; GLUCOSE,POINT OF CARE 201 MG/DL (70-110)
[2022-07-31 06:21] LABS: GLUCOMETER DEV NAME(LOC) 3EX.2; GLUCOSE,POINT OF CARE 160 MG/DL (70-110)
[2022-07-31 07:35] LABS: COVID AG,FIA SOURCE NASAL SWAB
[2022-07-31 09:03] VITALS: BP 122/78
[2022-07-31] MEDS: NALTREXONE HCL 50 MG TABLET PO SCH (09:06)
[2022-07-31] MEDS: AMOXICILLIN TRIHYDRATE 500 MG CAPSULE PO SCH ×3 (09:06→16:21)
[2022-07-31] MEDS: PANTOPRAZOLE SODIUM 40 MG DR TABLET PO SCH (09:06)
[2022-07-31] MEDS: LevETIRAcetam 500 MG TABLET PO SCH ×2 (09:06→16:21)
[2022-07-31] MEDS: MULTIVITAMINS WITH MINERALS, THERAPEUTIC TABLET PO SCH (09:06)
[2022-07-31] MEDS: OMEGA-3/DHA/EPA/FISH OIL 1,000 MG CAPSULE PO SCH (09:07)
[2022-07-31] MEDS: FLUoxetine HCL 20 MG CAPSULE PO SCH (09:07)
[2022-07-31 16:00] VITALS: BP 95/55
[2022-07-31 17:12] LABS: GLUCOMETER DEV NAME(LOC) 3EX.2; GLUCOSE,POINT OF CARE 179 MG/DL (70-110)
[2022-07-31] MEDS: MELATONIN 5 MG TABLET PO SCH (21:39)
[2022-07-31] MEDS: OLANZapine 10 MG RAPDIS TABLET PO SCH (21:39)
[2022-07-31] MEDS: DIVALPROEX SODIUM 500 MG ER TABLET PO SCH (21:40)
[2022-07-31] MEDS: ZOLPIDEM TARTRATE 10 MG TABLET PO PRN (22:15)
[2022-07-31] MEDS: LORazepam 1 MG TABLET PO PRN (23:41)
[2022-07-31] MEDS: GuaiFENesin/D-METHORPHAN [SUGAR-FREE] 200-20MG/10 ML SYRUP UDCUP PO PRN (23:41)
[2022-08-01 06:06] LABS: GLUCOMETER DEV NAME(LOC) 3EX.2; GLUCOSE,POINT OF CARE 115 MG/DL (70-110)
[2022-08-01] MEDS: FLUoxetine HCL 20 MG CAPSULE PO SCH (10:29)
[2022-08-01] MEDS: LevETIRAcetam 500 MG TABLET PO SCH ×2 (10:29→16:25)
[2022-08-01] MEDS: OMEGA-3/DHA/EPA/FISH OIL 1,000 MG CAPSULE PO SCH (10:30)
[2022-08-01] MEDS: PANTOPRAZOLE SODIUM 40 MG DR TABLET PO SCH (10:30)
[2022-08-01] MEDS: NALTREXONE HCL 50 MG TABLET PO SCH (10:30)
[2022-08-01] MEDS: MULTIVITAMINS WITH MINERALS, THERAPEUTIC TABLET PO SCH (10:30)
[2022-08-01] MEDS: AMOXICILLIN TRIHYDRATE 500 MG CAPSULE PO SCH ×3 (10:30→16:25)
[2022-08-01 10:43] VITALS: BP 115/63
[2022-08-01] MEDS: INSULIN LISPRO 100 UNITS/ML SQ PRN (16:46)
[2022-08-01 16:51] LABS: GLUCOMETER DEV NAME(LOC) 3EX.2; GLUCOSE,POINT OF CARE 190 MG/DL (70-110)
[2022-08-01] MEDS: MELATONIN 5 MG TABLET PO SCH (20:41)
[2022-08-01] MEDS: DIVALPROEX SODIUM 500 MG ER TABLET PO SCH (20:41)
[2022-08-01] MEDS: OLANZapine 10 MG RAPDIS TABLET PO SCH (20:42)
[2022-08-02 05:31] LABS: GLUCOMETER DEV NAME(LOC) 3EX.2; GLUCOSE,POINT OF CARE 91 MG/DL (70-110)
[2022-08-02 08:42] VITALS: BP 121/81
[2022-08-02] MEDS: FLUoxetine HCL 20 MG CAPSULE PO SCH (08:55)
[2022-08-02] MEDS: AMOXICILLIN TRIHYDRATE 500 MG CAPSULE PO SCH ×3 (08:55→16:17)
[2022-08-02] MEDS: OMEGA-3/DHA/EPA/FISH OIL 1,000 MG CAPSULE PO SCH (08:55)
[2022-08-02] MEDS: PANTOPRAZOLE SODIUM 40 MG DR TABLET PO SCH (08:55)
[2022-08-02] MEDS: LevETIRAcetam 500 MG TABLET PO SCH ×2 (08:56→16:17)
[2022-08-02] MEDS: MULTIVITAMINS WITH MINERALS, THERAPEUTIC TABLET PO SCH (08:56)
[2022-08-02] MEDS: NALTREXONE HCL 50 MG TABLET PO SCH (08:56)
[2022-08-02 17:01] LABS: GLUCOMETER DEV NAME(LOC) 3EX.2; GLUCOSE,POINT OF CARE 179 MG/DL (70-110)
[2022-08-02] MEDS: OLANZapine 10 MG RAPDIS TABLET PO SCH (21:17)
[2022-08-02] MEDS: DIVALPROEX SODIUM 500 MG ER TABLET PO SCH (21:17)
[2022-08-02] MEDS: MELATONIN 5 MG TABLET PO SCH (21:18)
[2022-08-02] MEDS: ZOLPIDEM TARTRATE 10 MG TABLET PO PRN (21:20)
[2022-08-02 21:23] VITALS: BP 119/70
[2022-08-03 06:21] LABS: GLUCOMETER DEV NAME(LOC) 3EX.2; GLUCOSE,POINT OF CARE 98 MG/DL (70-110)
[2022-08-03] MEDS: OMEGA-3/DHA/EPA/FISH OIL 1,000 MG CAPSULE PO SCH (08:46)
[2022-08-03] MEDS: FLUoxetine HCL 20 MG CAPSULE PO SCH (08:46)
[2022-08-03] MEDS: PANTOPRAZOLE SODIUM 40 MG DR TABLET PO SCH (08:46)
[2022-08-03] MEDS: AMOXICILLIN TRIHYDRATE 500 MG CAPSULE PO SCH ×3 (08:46→16:45)
[2022-08-03] MEDS: NALTREXONE HCL 50 MG TABLET PO SCH (08:46)
[2022-08-03] MEDS: MULTIVITAMINS WITH MINERALS, THERAPEUTIC TABLET PO SCH (08:46)
[2022-08-03] MEDS: LevETIRAcetam 500 MG TABLET PO SCH ×2 (08:47→16:45)
[2022-08-03 09:20] VITALS: BP 121/83
[2022-08-03 16:36] LABS: GLUCOMETER DEV NAME(LOC) 3EX.2; GLUCOSE,POINT OF CARE 177 MG/DL (70-110)
[2022-08-03 16:49] VITALS: BP 124/79
[2022-08-03] MEDS: INSULIN LISPRO 100 UNITS/ML SQ PRN (18:19)
[2022-08-03] MEDS: DIVALPROEX SODIUM 500 MG ER TABLET PO SCH (20:59)
[2022-08-03] MEDS: MELATONIN 5 MG TABLET PO SCH (20:59)
[2022-08-03] MEDS: OLANZapine 10 MG RAPDIS TABLET PO SCH (21:00)
[2022-08-04] MEDS: INSULIN LISPRO 100 UNITS/ML SQ PRN ×2 (06:47→17:49)
[2022-08-04 07:06] LABS: GLUCOMETER DEV NAME(LOC) 3E.C; GLUCOSE,POINT OF CARE 141 MG/DL (70-110)
[2022-08-04] MEDS: OMEGA-3/DHA/EPA/FISH OIL 1,000 MG CAPSULE PO SCH (08:25)
[2022-08-04] MEDS: PANTOPRAZOLE SODIUM 40 MG DR TABLET PO SCH (08:25)
[2022-08-04] MEDS: NALTREXONE HCL 50 MG TABLET PO SCH (08:25)
[2022-08-04] MEDS: FLUoxetine HCL 20 MG CAPSULE PO SCH (08:25)
[2022-08-04] MEDS: MULTIVITAMINS WITH MINERALS, THERAPEUTIC TABLET PO SCH (08:25)
[2022-08-04] MEDS: LevETIRAcetam 500 MG TABLET PO SCH ×2 (08:26→16:32)
[2022-08-04 16:00] VITALS: BP 120/70
[2022-08-04 16:41] LABS: GLUCOMETER DEV NAME(LOC) 3EX.2; GLUCOSE,POINT OF CARE 199 MG/DL (70-110)
[2022-08-04] MEDS: MELATONIN 5 MG TABLET PO SCH (20:41)
[2022-08-04] MEDS: DIVALPROEX SODIUM 500 MG ER TABLET PO SCH (20:42)
[2022-08-04] MEDS: ZOLPIDEM TARTRATE 10 MG TABLET PO PRN (20:43)
[2022-08-04] MEDS: OLANZapine 10 MG RAPDIS TABLET PO SCH (20:43)
[2022-08-05] MEDS: INSULIN LISPRO 100 UNITS/ML SQ PRN (06:54)
[2022-08-05 07:17] LABS: GLUCOMETER DEV NAME(LOC) 3EX.2; GLUCOSE,POINT OF CARE 172 MG/DL (70-110)
[2022-08-05] MEDS: MetFORMIN HCL 500 MG TABLET PO SCH (08:00)
[2022-08-05] MEDS: OMEGA-3/DHA/EPA/FISH OIL 1,000 MG CAPSULE PO SCH (08:03)
[2022-08-05] MEDS: MULTIVITAMINS WITH MINERALS, THERAPEUTIC TABLET PO SCH (08:03)
[2022-08-05] MEDS: PANTOPRAZOLE SODIUM 40 MG DR TABLET PO SCH (08:03)
[2022-08-05] MEDS: LevETIRAcetam 500 MG TABLET PO SCH ×2 (08:03→16:38)
[2022-08-05] MEDS: FLUoxetine HCL 20 MG CAPSULE PO SCH (08:04)
[2022-08-05] MEDS: NALTREXONE HCL 50 MG TABLET PO SCH (08:04)
[2022-08-05 09:19] VITALS: BP 111/75
[2022-08-05 11:56] LABS: GLUCOMETER DEV NAME(LOC) 3EX.2; GLUCOSE,POINT OF CARE 179 MG/DL (70-110)
[2022-08-05 17:46] LABS: GLUCOMETER DEV NAME(LOC) 3EX.2; GLUCOSE,POINT OF CARE 119 MG/DL (70-110)
[2022-08-05] MEDS: ZOLPIDEM TARTRATE 10 MG TABLET PO PRN (20:32)
[2022-08-05] MEDS: DIVALPROEX SODIUM 500 MG ER TABLET PO SCH (20:32)
[2022-08-05] MEDS: OLANZapine 10 MG RAPDIS TABLET PO SCH (20:33)
[2022-08-05] MEDS: MELATONIN 5 MG TABLET PO SCH (20:34)
[2022-08-06] MEDS: INSULIN LISPRO 100 UNITS/ML SQ PRN ×2 (06:54→17:49)
[2022-08-06 07:46] LABS: GLUCOMETER DEV NAME(LOC) 3EX.2; GLUCOSE,POINT OF CARE 98 MG/DL (70-110)
[2022-08-06] MEDS: MetFORMIN HCL 500 MG TABLET PO SCH (08:23)
[2022-08-06] MEDS: NALTREXONE HCL 50 MG TABLET PO SCH (08:24)
[2022-08-06] MEDS: LevETIRAcetam 500 MG TABLET PO SCH ×2 (08:24→16:49)
[2022-08-06] MEDS: FLUoxetine HCL 20 MG CAPSULE PO SCH (08:24)
[2022-08-06] MEDS: PANTOPRAZOLE SODIUM 40 MG DR TABLET PO SCH (08:24)
[2022-08-06] MEDS: OMEGA-3/DHA/EPA/FISH OIL 1,000 MG CAPSULE PO SCH (08:24)
[2022-08-06] MEDS: MULTIVITAMINS WITH MINERALS, THERAPEUTIC TABLET PO SCH (08:24)
[2022-08-06 08:52] VITALS: BP 100/57
[2022-08-06 11:48] LABS: GLUCOMETER DEV NAME(LOC) 3EX.2; GLUCOSE,POINT OF CARE 205 MG/DL (70-110)
[2022-08-06 16:00] VITALS: BP 94/60
[2022-08-06 18:07] LABS: GLUCOMETER DEV NAME(LOC) 3EX.2; GLUCOSE,POINT OF CARE 166 MG/DL (70-110)
[2022-08-06] MEDS: OLANZapine 10 MG RAPDIS TABLET PO SCH (20:45)
[2022-08-06] MEDS: MELATONIN 5 MG TABLET PO SCH (20:45)
[2022-08-06] MEDS: DIVALPROEX SODIUM 500 MG ER TABLET PO SCH (20:45)
[2022-08-07 05:37] LABS: GLUCOMETER DEV NAME(LOC) 3EX.2; GLUCOSE,POINT OF CARE 143 MG/DL (70-110)
[2022-08-07] MEDS: MetFORMIN HCL 500 MG TABLET PO SCH (07:01)
[2022-08-07] MEDS: INSULIN LISPRO 100 UNITS/ML SQ PRN ×2 (07:03→17:51)
[2022-08-07 07:48] LABS: COVID AG,FIA SOURCE NASAL SWAB
[2022-08-07 08:27] VITALS: BP 124/79
[2022-08-07 08:28] VITALS: BP 124/70
[2022-08-07] MEDS: VARENICLINE TARTRATE 0.5 MG TABLET PO SCH (09:06)
[2022-08-07] MEDS: NALTREXONE HCL 50 MG TABLET PO SCH (09:06)
[2022-08-07] MEDS: PANTOPRAZOLE SODIUM 40 MG DR TABLET PO SCH (09:06)
[2022-08-07] MEDS: MULTIVITAMINS WITH MINERALS, THERAPEUTIC TABLET PO SCH (09:06)
[2022-08-07] MEDS: FLUoxetine HCL 20 MG CAPSULE PO SCH (09:06)
[2022-08-07] MEDS: LevETIRAcetam 500 MG TABLET PO SCH ×2 (09:06→16:29)
[2022-08-07] MEDS: OMEGA-3/DHA/EPA/FISH OIL 1,000 MG CAPSULE PO SCH (09:18)
[2022-08-07 16:15] VITALS: BP 100/69
[2022-08-07 17:07] LABS: GLUCOMETER DEV NAME(LOC) 3EX.2; GLUCOSE,POINT OF CARE 186 MG/DL (70-110)
[2022-08-07 20:16] VITALS: BP 135/85
[2022-08-07] MEDS: OLANZapine 10 MG RAPDIS TABLET PO SCH (21:49)
[2022-08-07] MEDS: DIVALPROEX SODIUM 500 MG ER TABLET PO SCH (21:49)
[2022-08-07] MEDS: MELATONIN 5 MG TABLET PO SCH (21:49)
[2022-08-08 05:51] LABS: GLUCOMETER DEV NAME(LOC) 3EX.2; GLUCOSE,POINT OF CARE 172 MG/DL (70-110)
[2022-08-08] MEDS: MetFORMIN HCL 500 MG TABLET PO SCH (06:42)
[2022-08-08 08:05] VITALS: BP 152/81
[2022-08-08] MEDS: MULTIVITAMINS WITH MINERALS, THERAPEUTIC TABLET PO SCH (09:30)
[2022-08-08] MEDS: LevETIRAcetam 500 MG TABLET PO SCH ×2 (09:30→17:24)
[2022-08-08] MEDS: OMEGA-3/DHA/EPA/FISH OIL 1,000 MG CAPSULE PO SCH (09:30)
[2022-08-08] MEDS: NALTREXONE HCL 50 MG TABLET PO SCH (09:30)
[2022-08-08] MEDS: VARENICLINE TARTRATE 0.5 MG TABLET PO SCH (09:30)
[2022-08-08] MEDS: PANTOPRAZOLE SODIUM 40 MG DR TABLET PO SCH (09:31)
[2022-08-08] MEDS: FLUoxetine HCL 20 MG CAPSULE PO SCH (09:31)
[2022-08-08 17:27] LABS: GLUCOMETER DEV NAME(LOC) 3EX.2; GLUCOSE,POINT OF CARE 127 MG/DL (70-110)
[2022-08-08 20:49] VITALS: BP 108/63
[2022-08-08] MEDS: DIVALPROEX SODIUM 500 MG ER TABLET PO SCH (21:00)
[2022-08-08] MEDS: OLANZapine 10 MG RAPDIS TABLET PO SCH (21:00)
[2022-08-08] MEDS: MELATONIN 5 MG TABLET PO SCH (21:01)
[2022-08-09 05:41] LABS: GLUCOMETER DEV NAME(LOC) 3EX.2; GLUCOSE,POINT OF CARE 126 MG/DL (70-110)
[2022-08-09] MEDS: MetFORMIN HCL 500 MG TABLET PO SCH (07:02)
[2022-08-09 09:28] VITALS: BP 90/57
[2022-08-09] MEDS: MULTIVITAMINS WITH MINERALS, THERAPEUTIC TABLET PO SCH (09:35)
[2022-08-09] MEDS: FLUoxetine HCL 20 MG CAPSULE PO SCH (09:35)
[2022-08-09] MEDS: NALTREXONE HCL 50 MG TABLET PO SCH (09:35)
[2022-08-09] MEDS: OMEGA-3/DHA/EPA/FISH OIL 1,000 MG CAPSULE PO SCH (09:35)
[2022-08-09] MEDS: LevETIRAcetam 500 MG TABLET PO SCH ×2 (09:36→18:01)
[2022-08-09] MEDS: VARENICLINE TARTRATE 0.5 MG TABLET PO SCH (09:36)
[2022-08-09] MEDS: PANTOPRAZOLE SODIUM 40 MG DR TABLET PO SCH (09:36)
[2022-08-09 16:21] LABS: GLUCOMETER DEV NAME(LOC) 3EX.2; GLUCOSE,POINT OF CARE 164 MG/DL (70-110)
[2022-08-09] MEDS: INSULIN LISPRO 100 UNITS/ML SQ PRN (16:29)
[2022-08-09 16:34] VITALS: BP 106/61
[2022-08-09] MEDS: OLANZapine 10 MG RAPDIS TABLET PO SCH (21:08)
[2022-08-09] MEDS: MELATONIN 5 MG TABLET PO SCH (21:08)
[2022-08-09] MEDS: DIVALPROEX SODIUM 500 MG ER TABLET PO SCH (21:08)
[2022-08-10 05:46] LABS: GLUCOMETER DEV NAME(LOC) 3EX.2; GLUCOSE,POINT OF CARE 126 MG/DL (70-110)
[2022-08-10] MEDS: MetFORMIN HCL 500 MG TABLET PO SCH (06:39)
[2022-08-10] MEDS: MULTIVITAMINS WITH MINERALS, THERAPEUTIC TABLET PO SCH (08:14)
[2022-08-10] MEDS: NALTREXONE HCL 50 MG TABLET PO SCH (08:14)
[2022-08-10] MEDS: PANTOPRAZOLE SODIUM 40 MG DR TABLET PO SCH (08:14)
[2022-08-10] MEDS: FLUoxetine HCL 20 MG CAPSULE PO SCH (08:14)
[2022-08-10] MEDS: OMEGA-3/DHA/EPA/FISH OIL 1,000 MG CAPSULE PO SCH (08:15)
[2022-08-10] MEDS: VARENICLINE TARTRATE 0.5 MG TABLET PO SCH (08:15)
[2022-08-10] MEDS: LevETIRAcetam 500 MG TABLET PO SCH ×2 (08:16→17:03)
[2022-08-10 08:27] VITALS: BP 146/84
[2022-08-10 16:03] VITALS: BP 110/74
[2022-08-10 16:46] LABS: GLUCOMETER DEV NAME(LOC) 3EX.2; GLUCOSE,POINT OF CARE 227 MG/DL (70-110)
[2022-08-10] MEDS: INSULIN LISPRO 100 UNITS/ML SQ PRN (17:08)
[2022-08-10] MEDS: MELATONIN 5 MG TABLET PO SCH (20:31)
[2022-08-10] MEDS: OLANZapine 10 MG RAPDIS TABLET PO SCH (20:31)
[2022-08-10] MEDS: DIVALPROEX SODIUM 500 MG ER TABLET PO SCH (20:31)
[2022-08-10] MEDS: ZOLPIDEM TARTRATE 10 MG TABLET PO PRN (21:08)
[2022-08-10 21:39] VITALS: BP 122/87
[2022-08-11 01:05] VITALS: BP 124/84
[2022-08-11] MEDS: LORazepam 1 MG TABLET PO PRN (01:08)
[2022-08-11] MEDS: INSULIN LISPRO 100 UNITS/ML SQ PRN ×2 (06:46→17:40)
[2022-08-11 07:06] LABS: GLUCOMETER DEV NAME(LOC) 3EX.2; GLUCOSE,POINT OF CARE 117 MG/DL (70-110)
[2022-08-11] MEDS: MetFORMIN HCL 500 MG TABLET PO SCH (08:25)
[2022-08-11] MEDS: LevETIRAcetam 500 MG TABLET PO SCH ×2 (08:26→17:04)
[2022-08-11] MEDS: PANTOPRAZOLE SODIUM 40 MG DR TABLET PO SCH (08:26)
[2022-08-11] MEDS: MULTIVITAMINS WITH MINERALS, THERAPEUTIC TABLET PO SCH (08:26)
[2022-08-11] MEDS: VARENICLINE TARTRATE 0.5 MG TABLET PO SCH (08:26)
[2022-08-11] MEDS: OMEGA-3/DHA/EPA/FISH OIL 1,000 MG CAPSULE PO SCH (08:26)
[2022-08-11] MEDS: NALTREXONE HCL 50 MG TABLET PO SCH (08:26)
[2022-08-11] MEDS: FLUoxetine HCL 20 MG CAPSULE PO SCH (08:26)
[2022-08-11 08:46] VITALS: BP 101/75
[2022-08-11 16:04] VITALS: BP 117/65
[2022-08-11 17:51] LABS: GLUCOMETER DEV NAME(LOC) 3EX.2; GLUCOSE,POINT OF CARE 184 MG/DL (70-110)
[2022-08-11 20:32] VITALS: BP 118/78
[2022-08-11] MEDS: MELATONIN 5 MG TABLET PO SCH (20:43)
[2022-08-11] MEDS: OLANZapine 10 MG RAPDIS TABLET PO SCH (20:43)
[2022-08-11] MEDS: DIVALPROEX SODIUM 500 MG ER TABLET PO SCH (20:43)
[2022-08-12 06:07] LABS: GLUCOMETER DEV NAME(LOC) 3EX.2; GLUCOSE,POINT OF CARE 61 MG/DL (70-110)
[2022-08-12 06:37] LABS: GLUCOMETER DEV NAME(LOC) 3EX.2; GLUCOSE,POINT OF CARE 90 MG/DL (70-110)
[2022-08-12] MEDS: INSULIN LISPRO 100 UNITS/ML SQ PRN ×2 (06:45→17:40)
[2022-08-12] MEDS: MetFORMIN HCL 500 MG TABLET PO SCH (07:04)
[2022-08-12] MEDS: MULTIVITAMINS WITH MINERALS, THERAPEUTIC TABLET PO SCH (08:25)
[2022-08-12] MEDS: PANTOPRAZOLE SODIUM 40 MG DR TABLET PO SCH (08:26)
[2022-08-12] MEDS: FLUoxetine HCL 20 MG CAPSULE PO SCH (08:26)
[2022-08-12] MEDS: NALTREXONE HCL 50 MG TABLET PO SCH (08:26)
[2022-08-12] MEDS: LevETIRAcetam 500 MG TABLET PO SCH ×2 (08:26→16:19)
[2022-08-12] MEDS: OMEGA-3/DHA/EPA/FISH OIL 1,000 MG CAPSULE PO SCH (08:26)
[2022-08-12] MEDS: VARENICLINE TARTRATE 0.5 MG TABLET PO SCH (08:26)
[2022-08-12 09:06] VITALS: BP 124/83
[2022-08-12] MEDS ORDERED: NALT50TA PO (13:37)
[2022-08-12] MEDS ORDERED: OLAN10TA26 PO (13:37)
[2022-08-12] MEDS ORDERED: LEVE500T8 PO (13:37)
[2022-08-12] MEDS ORDERED: MELA5TAB40 PO (13:37)
[2022-08-12] MEDS ORDERED: DIVA500T69 PO (13:37)
[2022-08-12] MEDS ORDERED: OMEG-135 PO (13:37)
[2022-08-12] MEDS: NICOTINE 21 MG/24 HOUR PATCH TD PRN (13:46)
[2022-08-12 16:56] LABS: GLUCOMETER DEV NAME(LOC) 3EX.2; GLUCOSE,POINT OF CARE 178 MG/DL (70-110)
[2022-08-12 20:00] VITALS: BP 128/75
[2022-08-12] MEDS: MELATONIN 5 MG TABLET PO SCH (20:46)
[2022-08-12] MEDS: OLANZapine 10 MG RAPDIS TABLET PO SCH (20:46)
[2022-08-12] MEDS: DIVALPROEX SODIUM 500 MG ER TABLET PO SCH (20:47)
[2022-08-13 05:56] LABS: GLUCOMETER DEV NAME(LOC) 3EX.2; GLUCOSE,POINT OF CARE 103 MG/DL (70-110)
[2022-08-13] MEDS: INSULIN LISPRO 100 UNITS/ML SQ PRN (06:37)
[2022-08-13] MEDS: MetFORMIN HCL 500 MG TABLET PO SCH (07:00)
[2022-08-13] MEDS: LevETIRAcetam 500 MG TABLET PO SCH (08:09)
[2022-08-13] MEDS: FLUoxetine HCL 20 MG CAPSULE PO SCH (08:09)
[2022-08-13] MEDS: VARENICLINE TARTRATE 0.5 MG TABLET PO SCH (08:09)
[2022-08-13] MEDS: NALTREXONE HCL 50 MG TABLET PO SCH (08:09)
[2022-08-13] MEDS: OMEGA-3/DHA/EPA/FISH OIL 1,000 MG CAPSULE PO SCH (08:09)
[2022-08-13] MEDS: PANTOPRAZOLE SODIUM 40 MG DR TABLET PO SCH (08:09)
[2022-08-13] MEDS: MULTIVITAMINS WITH MINERALS, THERAPEUTIC TABLET PO SCH (08:09)
[2022-08-13 09:00] VITALS: BP 112/67
[2022-08-13 11:56] LABS: COVID AG,FIA SOURCE NASAL SWAB
== END 2022-08-13 12:13 | DRG 885 ==
LOC: 3EC 15:54 → 3EI 07-24 14:04
PROVIDERS: ADMIT Psychiatry & Neurology Psychiatry; ATTEND Psychiatry & Neurology Psychiatry
DX: F25.1 Schizoaffective disorder, depressive type (principal); F01.50 Vascular dementia, unspecified severity, without behavioral disturbance, psychotic disturbance, mood disturbance, and anxiety; E11.65 Type 2 diabetes mellitus with hyperglycemia; I69.354 Hemiplegia and hemiparesis following cerebral infarction affecting left non-dominant side; Z20.822 Contact with and (suspected) exposure to COVID-19; D64.9 Anemia, unspecified; F10.10 Alcohol abuse, uncomplicated; F17.210 Nicotine dependence, cigarettes, uncomplicated; L30.9 Dermatitis, unspecified; E78.5 Hyperlipidemia, unspecified; J02.9 Acute pharyngitis, unspecified; I10 Essential (primary) hypertension; J44.9 Chronic obstructive pulmonary disease, unspecified; K21.9 Gastro-esophageal reflux disease without esophagitis; R13.10 Dysphagia, unspecified; R56.9 Unspecified convulsions; Z55.9 Problems related to education and literacy, unspecified; Z59.9 Problem related to housing and economic circumstances, unspecified; Z63.9 Problem related to primary support group, unspecified; Z65.3 Problems related to other legal circumstances; Z79.899 Other long term (current) drug therapy
CPT/HCPCS: 80053; 80061; 80164; 81001; 82550; 82962; 83036; 84443; 85025; 87081; 92526; 92610; 97112; 97116; 97162; 97167; 97530; 97535; Q9967